=== PATIENT | female | born 1975 | race African-American/Black ===

== ENCOUNTER 2023-06-22 22:12 | Emergency (ER) | payer OTHER, MEDICAID ==
[~2023-06-22] VITALS: Ht 165.1 cm; Wt 133.0 kg
[2023-06-22 22:28] VITALS: BP 174/70; PULSE 66; RESP 15; O2SAT 100
[2023-06-22 23:14] LABS: Urine Bacteria FEW /hpf (None Seen); Urine Blood Negative /uL (Negative); Urine Clarity Clear (Clear); Urine Color Yellow (Yellow); Urine Mucus FEW (None Seen); Urine Protein, UAD Negative (Negative); Urine Specific Gravity 1.028 (1.001-1.035); Urine Urobilinogen Normal (Negative); Urine WBC 2 /hpf (0 - 5); Urine pH 5.5 (5.0-8.0)
[2023-06-22 23:21] LABS: Basophils # (auto) 0.1 10 ^3/uL (0-0.2); Basophils % (auto) 1.1 % (0.0-2.0); Eosinophils # (auto) 0.5 10 ^3/uL (0-0.8); Monocytes # (auto) 0.6 10 ^3/uL (0-1.3); Neutrophils # (auto) 4.4 10 ^3/uL (1.6-8.6)
[2023-06-22 23:23] LABS: Eosinophils % (auto) 5.6 % (0.0-7.0); Hematocrit 37.2 % (36.0-46.0); Lymphocytes # (auto) 3.3 10 ^3/uL (0.4-5.4); Lymphocytes % (auto) 36.9 % (10.0-50.0); Mean Corpuscular Hgb Conc. 32.2 g/dL (32.0-36.0); Mean Corpuscular Volume 83.9 fL (80.0-100.0); Monocytes % (auto) 6.8 % (0.0-12.0); Neutrophils % (auto) 49.6 % (37.0-80.0); Red Blood Cells 4.43 10^6/uL (4.0-5.20); Red Cell Distribution Width 17.1 % (11.8-14.3)
[2023-06-22 23:38] LABS: Alanine Aminotransferase 22 U/L (7-40); Alkaline Phosphatase 87 U/L (46-116); Aspartate Aminotransferase 11 U/L (13-40); Calcium 9.2 mg/dL (8.7-10.4); Chloride 111 mmol/L (98-107)
[2023-06-22 23:39] LABS: Albumin 4.1 g/dL (3.2-4.8); Anion Gap 3 (5-15); Bilirubin, Total 0.4 mg/dL (0.2-1.0); Carbon Dioxide 27 mmol/L (20-30); Glucose 95 mg/dL (74-106); Lipase 25 U/L (12-53); Potassium 3.8 mmol/L (3.5-5.1); Sodium 141 mmol/L (136-145); Total Protein 7.1 g/dL (5.7-8.2)
[2023-06-22 23:46] LABS: BUN/Creatinine Ratio 6.6 (10.0-20.0); Blood Urea Nitrogen < 5 mg/dL (9-23)
== END 2023-06-23 00:50 | disposition home or self-care (01) ==
LOC: ER 22:12
DX: O26.891 Other specified pregnancy related conditions, first trimester (principal); R10.2 Pelvic and perineal pain; Z3A.01 Less than 8 weeks gestation of pregnancy
CPT/HCPCS: 36415; 80053; 81001; 83690; 84702; 85025